=== PATIENT | male | born 1990 | race Caucasian/White ===

== ENCOUNTER 2021-11-06 15:20 | Emergency (ER) | payer SELFPAY ==
[2021-11-06 15:23] VITALS: BP 138/86; PULSE 86; RESP 20; TEMP 36.8; O2SAT 98; BMI 23.6
--- NOTE | 2021-11-06 15:27 | CTR_ITS ---
PROCEDURE INFORMATION: Exam: CT Head Without Contrast Exam date and time: 11/06/2021 4:16 PM Age: 31 years old Clinical indication: Other: Seizure TECHNIQUE: Imaging protocol: Computed tomography of the head without contrast. Radiation optimization: All CT scans at this facility use at least one of these dose optimization techniques: automated exposure control; mA and/or kV adjustment per patient size (includes targeted exams where dose is matched to clinical indication); or iterative reconstruction. COMPARISON: No relevant prior studies available. RADIATION DOSE METRICS: Total DLP (mGy-cm): 1731.68 FINDINGS: Brain: Normal. No hemorrhage. Unremarkable white matter. No mass effect. Cerebral ventricles: No ventriculomegaly. Paranasal sinuses: Visualized sinuses are unremarkable. No fluid levels. Mastoid air cells: Visualized mastoid air cells are well aerated. Bones/joints: Unremarkable. No acute fracture. Soft tissues: Unremarkable. CT/CT head wo con* [id number] IMPRESSION: No acute intracranial abnormality.
--- NOTE | 2021-11-06 15:53 | ED_ITS ---
HPI - Seizure General: Chief Complaint: Seizure Stated Complaint: SEIZURE; POLY SUBSTANCE ABUSE Time Seen by Provider: 11/06/21 15:24 Source: patient and EMS Mode of arrival: EMS Limitations: no limitations History of Present Illness: HPI Narrative: 31-year-old male who has a history of seizures along with substance abuse states he was incarcerated roughly 3 days ago. He is here by EMS after a seizure. He had a seizure lasted roughly 15 to 20 minutes resolved with Versed. Patient here is awake and alert and at his baseline. He states that he is not currently on any antiseizure meds he states he does use methamphetamine along with other drugs and has not used the last 3 to 4 days due to being in prison. Denies any head injuries denies headache denies worsening proving factors. Associated symptoms: Deny chest pain, chills or fever(s) Review of Systems Const: Denies: fever(s), chills, body aches or change in appetite Eyes: Denies: blurry vision or eye discomfort ENMT: Denies: throat pain or dental pain Card: Denies: chest pain Resp: Denies: dyspnea GI: Denies: abdominal pain, nausea, vomiting or diarrhea : Denies: dysuria Musc: Denies: neck pain or back pain Skin/Breast: Denies: rash Neuro: Reports: seizure-like activity Psych: Denies: depression Omkar/Lymph: Denies: easy bruising All/Imm: Denies: urticaria PFS ED PFSH: Medical History (Updated 11/06/21 @ 17:17 by Ciera Kelly MD) Seizure Social History (Updated 11/06/21 @ 15:55 by Ciera Kelly MD) Substance/Drug Use: current Physical Exam Const: COMMON NORMALS: no acute distress, patient oriented x3 and healthy appearing HENMT: COMMON NORMALS: normocephalic and atraumatic HEAD & SCALP: normocephalic and atraumatic Eye: COMMON NORMALS: Equal, round and reactive pupils present and EOMs intact bilaterally PUPIL: Yes Equal, round and reactive pupils present Neck/C-Spine: COMMON NORMALS: full ROM and supple Chest: COMMONS NORMALS: normal inspection of the chest and normal palpation of entire chest wall Resp: COMMON NORMALS: normal respiratory effort, No retractions, No use of accessory muscles and clear to auscultation bilaterally AUSCULTATION: clear to auscultation bilaterally Cardio: COMMON NORMALS: regular rate, regular rhythm and No murmurs present (Cardio) RATE: regular rate RHYTHM: regular rhythm GI: COMMON NORMALS: Normal to inspection, nondistended, normoactive bowel sounds present, Soft to palpation, non-tender and no masses PALPATION: Yes Soft to palpation Extremity: COMMON NORMALS: normal to inspection and full ROM Neuro: COMMON NORMALS: patient oriented x3, moves all extremities and no focal motor deficits Psych: COMMON NORMALS: mental status grossly normal, Normal thought process present and cooperative THOUGHT PROCESS: Normal thought process present Skin: COMMON NORMALS: no rashes or lesions noted and no wounds GENERAL SKIN EXAM: no rashes or lesions noted Course Vital Signs: Vital signs: Vital Signs Temperature 98.2 F 11/06/21 15:23 Pulse Rate 86 11/06/21 15:23 Respiratory Rate 20 H 11/06/21 15:23 Blood Pressure 138/86 11/06/21 15:23 Pulse Oximetry 98 11/06/21 15:23 MDM - Seizure MDM Narrative Medical decision making narrative: Patient presents here with a seizure he does have a history of seizures his head CT here is normal was able to draw blood here he is refusing IV sticks at this time he has been observed here has been well-appearing we will start him on Keppra he is stable for discharge she is to follow-up with PCP and return if worsening. Lab Data Labs: Radiology Impressions Head CT 11/06/21 15:27 IMPRESSION: No acute intracranial abnormality. Discharge Plan Discharge Patient Disposition: Home Clinical Impression: Seizure Condition: Stable Prescriptions: New Keppra 500 mg tablet 500 mg PO Q12H Qty: 60 0RF Discharge Orders: Discharge ED (Routine); Ordered 11/06/21 Ordered By: Ciera Kelly Referrals: Patricia Roth, FINANCIAL ANALYSIS MANAGER-C [Primary Care Provider] - Discharge Diet: Advance as tolerated Discharge Activity: Resume usual activity Patient Instructions: Recurrent Seizures in Adults (ED) Coding Level of Care Code ED Refinery Operator Helper for Chg Fwd Exam Comprehensive
== END 2021-11-06 17:20 | disposition home or self-care (01) ==
PROVIDERS: Emergency Provider Emergency Medicine; PCP Nurse Practitioner
DX: R56.9 Unspecified convulsions (principal)
CPT/HCPCS: 70450; 96365; 99283; J1953

== ENCOUNTER 2021-12-01 | Emergency (ER) | payer SELFPAY ==
[2021-12-01 00:01] VITALS: BP 156/91; PULSE 146; RESP 14; TEMP 36.7; O2SAT 100; BMI 23.6
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
[2021-12-01] MEDS: iohexol 300 mg/mL 100 mL Btl IV (00:25)
[2021-12-01 00:27] LABS: Basophils % 0.2 %; Eosinophils # 0.1 10^3/uL (0.0-0.8); Eosinophils % 0.6 %; Hematocrit 47.1 % (42.0-52.0); Hemoglobin 16.2 g/dL (11.7-16.6); Lymphocytes # 2.6 10^3/uL (0.8-4.8); Lymphocytes % 12.6 %; Mean Corpuscular HGB Conc 34.4 g/dL (30.0-36.0); Mean Corpuscular Hemoglobin 30.1 pg (28.0-34.0); Mean Corpuscular Volume 87.5 fl (80-94); Mean Platelet Volume 9.9 fL (7.4-10.4); Monocytes # 1.7 10^3/uL (0.2-0.9); Neutrophils # 15.96 10^3/uL (1.8-7.7); Neutrophils % 77.9 %; Nucleated Red Blood Cells % 0 %; Platelet Count 308 10^3/cmm (130-400); Red Blood Count 5.38 10^6/uL (4.1-5.3); Red Cell Distribution Width 13.6 % (12.1-15.1); White Blood Count 20.5 10^3/uL (4.0-10.0)
[2021-12-01] MEDS: sodium chloride 0.9% 1,000 ML 999 ML IV (00:43)
[2021-12-01 00:44] VITALS: RESP 16; O2SAT 100
[2021-12-01] MEDS: ondansetron 2 mg/ML SDV 2 mL 4 MG IVP (00:44)
[2021-12-01] MEDS: morphine 4 mg/mL SDV 1 mL IVP (00:44)
[2021-12-01 00:55] LABS: Albumin Level 4.5 g/dL (3.5-5.2); Alkaline Phosphatase 111 IU/L (40-130); Blood Urea Nitrogen 7 mg/dL (6-20); Calcium 9.8 mg/dL (8.5-10.5); Carbon Dioxide 26 mmol/L (22-29); Chloride 98 mmol/L (98-107); Globulin 3.7 g/dL (1.3-4.6); Glomerular Filtration Rate 98.4 mL/min (90-130); Glucose 151 mg/dL (65-115); Osmolality Calculated 285 mOsm/kg (285-295); Sodium 137 mmol/L (136-145); Total Bilirubin 0.4 mg/dL (0.15-1.2); Total Protein 8.2 g/dL (6.6-8.7)
[2021-12-01 01:00] VITALS: PULSE 111; RESP 15; O2SAT 97
[2021-12-01 01:07] LABS: Alcohol Level < 10 mg/dL (0-10)
[2021-12-01 01:08] LABS: Alanine Aminotransferase 12 U/L (0-41); Anion Gap 16.8 (5-19); Aspartate Amino Transferase 18 U/L (0-40); Potassium 3.8 mmol/L (3.5-5.1)
[2021-12-01 01:35] VITALS: BP 127/76; PULSE 116
[2021-12-01 01:46] VITALS: BP 127/76; PULSE 116; RESP 16; O2SAT 99
== END 2021-12-01 01:46 | disposition home or self-care (01) ==
PROVIDERS: Emergency Provider Emergency Medicine; PCP Nurse Practitioner
DX: R07.89 Other chest pain (principal); V48.0XXA Car driver injured in noncollision transport accident in nontraffic accident, initial encounter
CPT/HCPCS: 70450; 71045; 71260; 72125; 74177; 80053; 80307; 85025; 86850; 86900; 96361; 96374; 96375; 99284; J2270; J2405; J7030; Q9967

== ENCOUNTER 2024-11-18 13:31 | Emergency (ER) | payer MEDICAID, SELFPAY ==
[2024-11-18 13:32] VITALS: BP 143/85; PULSE 90; RESP 16; TEMP 36.5; O2SAT 99; BMI 25.5
[2024-11-18 15:07] VITALS: BP 127/102; PULSE 87; O2SAT 97
[2024-11-18 15:30] VITALS: BP 135/87; PULSE 85; O2SAT 97
--- NOTE | 2024-11-18 15:36 | W.ED.ABDPA2 ---
HPI - Abdominal Pain General: Chief Complaint: Abdominal Pain Stated Complaint: abd pain, n/v Time Seen by Provider: 11/18/24 15:36 History of Present Illness: 34-year-old male presents emergency room complaining intermittent abdominal pain for the last 3 weeks. Remote history of abdominal hernia surgery as a child. Patient denies any hematochezia or hematemesis. He has had some darker stools. No bright red blood with stools. He has not noticed anything that aggravates or relieves it. He has a history of hepatitis C and reflux. Associated Symptoms: Reports nausea and vomiting; Denies chills, dysuria and fever(s) Related Data Home Medications ?Medication ?Instructions ?Recorded ?Confirmed fluoxetine 10 mg capsule 10 mg PO DAILY 11/14/24 11/20/24 Held on 11/20/24. Instructions: Doctor's Order Previous Rx's ?Medication ?Instructions ?Recorded ondansetron 4 mg disintegrating 4 mg PO Q8H PRN nausea and 11/14/24 tablet vomiting #14 tabs pantoprazole 40 mg tablet,delayed 40 mg PO DAILY #30 tabs 11/18/24 release (Protonix) propranolol 20 mg tablet 20 mg PO .once per day #30 tabs 11/20/24 sucralfate 1 gram tablet (Carafate) 1 g PO TID #90 tabs 11/20/24 Allergies Allergy/AdvReac Type Severity Reaction Status Date / Time No Known Allergies Allergy Verified 11/20/24 11:54 Review of Systems Const: Denies: fever(s) or chills Card: Denies: chest pain Resp: Denies: dyspnea GI: Reports: abdominal pain, nausea and vomiting : Denies: dysuria, urinary frequency or urinary urgency Musc: Denies: neck pain or back pain Skin/Breast: Denies: rash PFSH ED PFSH: Medical History Gastritis Hx of intravenous drug use in remission Generalized anxiety disorder Essential hypertension GERD (gastroesophageal reflux disease) Hepatitis C No pertinent past medical history neghx:htn,dm,thyroid,dvt/pe PCP: none Seizure related to medications as a teenager Surgical History History of inguinal hernia repair as a child-- bilateral hernias Family History Other Cancer Diabetes Hypertension Denies family history of Clotting disorder Hyperlipidemia Anesthesia complication Bleeding disorder Social History Smoking and tobacco/nicotine status: current every day tobacco/nicotine user cigarettes [ Other cigarette details: 20 years, X 1 PPD] Alcohol intake: current Alcohol intake frequency: holidays/special occasions only Substance/Drug Use: former Former substance use details: meth and weed-hx of opiate use but not for several years. Physical Exam Const: GENERAL APPEARANCE: cooperative ORIENTATION/CONSCIOUSNESS: Yes awake, Yes oriented to person, Yes oriented to place and Yes oriented to time HENMT: COMMON NORMALS: normocephalic, atraumatic and hearing grossly normal bilaterally HEAD & SCALP: normocephalic and atraumatic Resp: COMMON NORMALS: normal respiratory effort, No retractions, No use of accessory muscles and clear to auscultation bilaterally AUSCULTATION: clear to auscultation bilaterally Cardio: COMMON NORMALS: regular rate, regular rhythm and No murmurs present (Cardio) RATE: regular rate RHYTHM: regular rhythm GI: COMMON NORMALS: Soft to palpation and No hepatosplenomegaly present AUSCULTATION: Yes normoactive bowel sounds PALPATION: Yes Soft to palpation, No Tenderness to palpation present (GI), No Guarding due to palpation present (GI) and Yes No hepatosplenomegaly present Extremity: COMMON NORMALS: normal to inspection, capillary refill normal, no clubbing, cyanosis or edema, no calf tenderness and no pedal edema Neuro: SENSORIUM/ORIENTATION: Yes oriented to person, Yes oriented to place and Yes oriented to time Skin: COMMON NORMALS: no rashes or lesions noted GENERAL SKIN EXAM: no rashes or lesions noted Course Vital Signs: Vital signs: Vital Signs Temperature 97.7 F 11/18/24 13:32 Pulse Rate 98 11/18/24 19:01 Respiratory Rate 16 11/18/24 13:32 Blood Pressure 0/0 11/18/24 19:01 Pulse Oximetry 93 11/18/24 19:01 Oxygen Delivery Me thod Room Air 11/18/24 13:32 MDM - Abdominal Pain Medical Decision Making BUN normal hemoglobin stable at [address] of the abdomen did not show any acute findings. Will discharge patient home set him up for follow-up with surgery for possible EGD started on pantoprazole 40 mg states that he sucralfate 1 tab 3 times daily. Medical Records I reviewed the patient's medical records. Lab Data I reviewed the patient's lab results. 11/18/24 16:40 11/18/24 16:40 Labs/Radiology: Radiology Impressions Abdomen/Pelvis CT 11/18/24 16:15 IMPRESSION: No acute findings. Laboratory Results WBC 12.50 10^3/uL (3.29-11.43) H 11/18/24 16:40 RBC 5.32 10^6/uL (3.85-5.65) 11/18/24 16:40 Hgb 16.20 g/dL (11.27-16.99) 11/18/24 16:40 Hct 47.0 % (37-53) 11/18/24 16:40 MCV 88.3 fl (82-101) 11/18/24 16:40 MCH 30.5 pg (27-33) 11/18/24 16:40 MCHC 34.5 g/dL (30-55) 11/18/24 16:40 RDW 12.6 % (12.1-15.1) 11/18/24 16:40 Plt Count 321 10^3/cmm (157-399) 11/18/24 16:40 MPV 9.9 fL (7.4-10.4) 11/18/24 16:40 Neut % (Auto) 75.6 % 11/18/24 16:40 Lymph % (Auto) 14.7 % 11/18/24 16:40 [place] % (Auto) 8.2 % 11/18/24 16:40 Eos % (Auto) 0.9 % 11/18/24 16:40 Baso % (Auto) 0.2 % 11/18/24 16:40 Neut # (Auto) 9.44 10^3/uL (1.8-7.7) H 11/18/24 16:40 Lymph # (Auto) 1.8 10^3/uL (0.8-4.8) 11/18/24 16:40 [place] # (Auto) 1.0 10^3/uL (0.2-0.9) H 11/18/24 16:40 Eos # (Auto) 0.1 10^3/uL (0.0-0.8) 11/18/24 16:40 Baso # (Auto) 0.0 10^3/uL (0.0-0.1) 11/18/24 16:40 Nucleated RBC % (auto) 0 % 11/18/24 16:40 Nucleated RBCs # 0.0 /100WBC 11/18/24 16:40 Sodium 135 mmol/L (136-145) L 11/18/24 16:40 Potassium 3.7 mmol/L (3.5-5.1) 11/18/24 16:40 Chloride 95 mmol/L (98-107) L 11/18/24 16:40 Carbon Dioxide 26 mmol/L (22-29) 11/18/24 16:40 Anion Gap 17.7 (5-19) 11/18/24 16:40 BUN 11 mg/dL (6-20) 11/18/24 16:40 Creatinine 0.8 mg/dL (0.7-1.2) 11/18/24 16:40 GFR Calculation 110.7 mL/min (90-130) 11/18/24 16:40 Glucose 119 mg/dL (65-115) H 11/18/24 16:40 Calculated Osmolality 281 mOsm/kg (285-295) L 11/18/24 16:40 Calcium 9.1 mg/dL (8.5-10.5) 11/18/24 16:40 Total Bilirubin 0.5 mg/dL (0.15-1.2) 11/18/24 16:40 AST 64 U/L (0-40) H 11/18/24 16:40 ALT 39 U/L (0-41) 11/18/24 16:40 Alkaline Phosphatase 94 U/L (40-130) 11/18/24 16:40 Total Protein 7.5 g/dL (6.6-8.7) 11/18/24 16:40 Albumin 4.5 g/dL (3.5-5.2) 11/18/24 16:40 Globulin 3.0 g/dL (1.3-4.6) 11/18/24 16:40 Lipase 39 U/L (13-60) 11/18/24 16:40 All radiology interpretation(s) finalized by discharge Discharge Plan Discharge Patient Disposition: Home Clinical Impression: History of hepatitis C GERD (gastroesophageal reflux disease) Qualifiers: Esophagitis presence: without esophagitis Qualified Code(s): K21.9 - Gastro-esophageal reflux disease without esophagitis Condition: Stable Prescriptions: New pantoprazole [Protonix] 40 mg tablet,delayed release (DR/EC) 40 mg PO DAILY Qty: 30 0RF No Action propranolol 20 mg tablet 20 mg PO .once per day Qty: 30 0RF sucralfate [Carafate] 1 gram tablet 1 g PO TID Qty: 90 0RF fluoxetine 10 mg capsule 10 mg PO DAILY ondansetron 4 mg tablet,disintegrating 4 mg PO Q8H PRN (Reason: nausea and vomiting) Qty: 14 0RF Discharge Orders: Discharge ED (Routine); Ordered 11/18/24 Ordered By: Fermin Red Referrals: Patrciia Roth, [facility] [Primary Care Provider, Family Practice] Discharge Diet: As Directed Patient Instructions: Diet for Stomach Ulcers and Gastritis (ED), GERD (Gastroesophageal Reflux Disease) (ED), Opioid Safety, Pain Management Activity Restrictions/Additional Instructions: Thank you for choosing [facility] for your healthcare needs today. It is very important that you follow up as instructed or that you return to the Emergency Department should you have concerns or if your condition changes or worsens in any way. You were seen in the emergency room with complaints of abdominal pain after eating with some vomiting. CT did not show any significant abnormalities no pathologic findings. Your kidney function was normal and there was a slight elevation in one of your liver functions probably related to your previous diagnosis of hepatitis C. You should follow-up this with your primary care doctor. Recommend starting pantoprazole 40 mg daily. Follow-up with primary care doctor if this does not improve things then you may need to have an EGD. Try to limit the amount of ibuprofen or Aleve you use [id number]. 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
[2024-11-18 16:00] VITALS: BP 151/96; PULSE 94; O2SAT 96
--- NOTE | 2024-11-18 16:15 | CTR_ITS ---
PROCEDURE INFORMATION: Exam: CT Abdomen And Pelvis With Contrast Exam date and time: 11/18/2024 4:52 PM Age: 34 years old Clinical indication: Nausea and vomiting; Abdominal pain; Generalized; Prior surgery; Surgery date: 6+ months; Surgery type: Bilateral inguinal hernia repair; Diffuse abd pain with n/v. TECHNIQUE: Imaging protocol: Computed tomography of the abdomen and pelvis with contrast. Radiation optimization: All CT scans at this facility use at least one of these dose optimization techniques: automated exposure control; mA and/or kV adjustment per patient size (includes targeted exams where dose is matched to clinical indication); or iterative reconstruction. Contrast material: OMNI 350; Contrast volume: 100 ml; Contrast route: INTRAVENOUS (IV); COMPARISON: CT chest abdpel w/*[id number] 12/01/2021 12:29 AM RADIATION DOSE METRICS: Total DLP (mGy-cm): 426.82 FINDINGS: Lungs: Lung bases are clear. No pleural effusion. Liver: Normal. No mass. Gallbladder and biliary ducts: Normal. No calcified stones. No ductal dilation. Pancreas: Normal. No ductal dilation. Spleen: Normal. No splenomegaly. Adrenal glands: Normal. No mass. Kidneys and ureters: Normal. No hydronephrosis. Stomach and bowel: Unremarkable. No obstruction. No mucosal thickening. Appendix: No evidence of appendicitis. Intraperitoneal space: Unremarkable. No free air. No significant fluid collection. Vasculature: Unremarkable. No abdominal aortic aneurysm. Lymph nodes: Unremarkable. No enlarged lymph nodes. Urinary bladder: Unremarkable as visualized. Reproductive: Unremarkable as visualized. Bones/joints: Unremarkable. No acute fracture. Soft tissues: Unremarkable. CT/CT abdomen pelvis w con* [id number] IMPRESSION: No acute findings.
[2024-11-18 16:50] LABS: Basophils % 0.2 %; Eosinophils # 0.1 10^3/uL (0.0-0.8); Eosinophils % 0.9 %; Lymphocytes # 1.8 10^3/uL (0.8-4.8); Lymphocytes % 14.7 %; Mean Corpuscular HGB Conc 34.5 g/dL (30-55); Mean Corpuscular Hemoglobin 30.5 pg (27-33); Mean Corpuscular Volume 88.3 fl (82-101); Mean Platelet Volume 9.9 fL (7.4-10.4); Monocytes % 8.2 %; Neutrophils # 9.44 10^3/uL (1.8-7.7); Neutrophils % 75.6 %; Nucleated Red Blood Cells % 0 %; Platelet Count 321 10^3/cmm (157-399); Red Blood Count 5.32 10^6/uL (3.85-5.65); Red Cell Distribution Width 12.6 % (12.1-15.1)
[2024-11-18] MEDS: iohexol 350 mg/mL 500 mL Btl (per mL) IV (16:59)
[2024-11-18 17:00] VITALS: PULSE 98; O2SAT 93
[2024-11-18 17:12] LABS: Alanine Aminotransferase 39 U/L (0-41); Albumin Level 4.5 g/dL (3.5-5.2); Alkaline Phosphatase 94 U/L (40-130); Anion Gap 17.7 (5-19); Aspartate Amino Transferase 64 U/L (0-40); Blood Urea Nitrogen 11 mg/dL (6-20); Calcium 9.1 mg/dL (8.5-10.5); Carbon Dioxide 26 mmol/L (22-29); Chloride 95 mmol/L (98-107); Glomerular Filtration Rate 110.7 mL/min (90-130); Glucose 119 mg/dL (65-115); Lipase 39 U/L (13-60); Osmolality Calculated 281 mOsm/kg (285-295); Potassium 3.7 mmol/L (3.5-5.1); Sodium 135 mmol/L (136-145); Total Bilirubin 0.5 mg/dL (0.15-1.2); Total Protein 7.5 g/dL (6.6-8.7)
[2024-11-18 19:01] VITALS: BP 0/0; PULSE 98; O2SAT 93
== END 2024-11-18 19:03 | disposition home or self-care (01) ==
PROVIDERS: Emergency Medicine; Emergency Provider Family Medicine; PCP Nurse Practitioner
DX: K21.9 Gastro-esophageal reflux disease without esophagitis (principal); B19.20 Unspecified viral hepatitis C without hepatic coma; F17.210 Nicotine dependence, cigarettes, uncomplicated
CPT/HCPCS: 36415; 74177; 80053; 83690; 85025; 99285